=== PATIENT | female | born 1970 | race Caucasian/White ===

== ENCOUNTER 2024-01-20 17:59 | Inpatient (IN) | payer OTHER ==
[~2024-01-20] VITALS: Ht 172.7 cm; Wt 85.7 kg
[2024-01-20] MEDS: IV NS 0.9% 1,000 ML BAG IV ONE (19:00)
[2024-01-20] MEDS: KETOROLAC TROMETHAMINE 15 MG/ML VIAL IV ONE (19:00)
[2024-01-20 19:04] LABS: BASOPHILS % (AUTO) 0.3 % (0.0-2.0); EOSINOPHILS % (AUTO) 0.7 % (0.0-6.0); HEMATOCRIT 38 % (33-45); HEMOGLOBIN 12.6 g/dL (11.5-14.8); LYMPHOCYTES # (AUTO) 1.8 K/uL (0.8-4.8); LYMPHOCYTES % (AUTO) 25.5 % (20.0-44.0); MEAN CORPUSCULAR HEMOGLOBIN 28 PG (26.0-33.0); MEAN CORPUSCULAR HGB CONC 34 g/dl (31.0-36.0); MEAN CORPUSCULAR VOLUME 84 fL (82-100); MONOCYTES # (AUTO) 0.4 K/uL (0.1-1.30); MONOCYTES % (AUTO) 6.1 % (2.0-12.0); NEUTROPHILS # (AUTO) 4.7 K/uL (1.8-8.9); NEUTROPHILS % (AUTO) 67.4 % (43.0-81.0); PLATELET COUNT (AUTO) 247 K/uL (150-450); RED BLOOD CELL COUNT(AUTO) 4.45 MIL/uL (4.0-5.2); RED CELL DISTRIBUTION WIDTH 13.8 % (11.5-15.0); WHITE BLOOD COUNT (AUTO) 6.9 K/uL (4.3-11.0)
[2024-01-20 19:05] LABS: APPEARANCE,URINE Clear (CLEAR); BILIRUBIN,URINE Negative (NEGATIVE); BLOOD, URINE Large Ery/uL (NEGATIVE); COLOR,URINE YELLOW (YELLOW); KETONES,URINE Trace mg/dL (NEGATIVE); LEUKOCYTE ESTERASE ,URINE Negative (NEGATIVE); NITRITE, URINE Negative (NEGATIVE); PH,URINE 5.5 (5.0-8.0); PROTEIN,URINE Negative (NEGATIVE); UGLUCOSE Negative (NEGATIVE); UROBILINOGEN,URINE 0.2 EU/dL (0.2)
[2024-01-20] MEDS ORDERED: KETOROLAC TROMETHAMINE 15 MG/ML VIAL ONE (19:10)
[2024-01-20 19:12] LABS: CALCIUM, SERUM 10.7 mg/dL (8.5-10.1); CREATININE 0.5 mg/dL (0.6-1.3); POTASSIUM 3.8 mmol/L (3.5-5.1)
[2024-01-20 19:26] LABS: ALBUMIN 4.1 g/dL (3.4-5.0); BILIRUBIN,TOTAL 0.3 mg/dL (0.2-1.0); TOTAL PROTEIN, SERUM 7.7 g/dL (6.4-8.2)
[2024-01-20 19:27] LABS: RBC,URINE 21-50 /HPF (0-2)
[2024-01-20 19:28] LABS: BILIRUBIN,DIRECT 0.1 mg/dL (0.0-0.2)
[2024-01-20 19:30] LABS: ADD URINE CULTURE NO; BACTERIA,URINE None seen /HPF (None Seen); WBC,URINE 0-2 /HPF (0-3)
[2024-01-20 19:31] LABS: CALCIUM OXALATE CRYSTALS,UR Few /HPF (None Seen)
[2024-01-20] MEDS ORDERED: TAMSULOSIN 0.4 MG CAP.SR.24H ONE (20:26)
[2024-01-20] MEDS ORDERED: KETOROLAC TROMETHAMINE INJ 30 MG/ML VIAL ONE (20:26)
[2024-01-20] MEDS: TAMSULOSIN 0.4 MG CAP.SR.24H PO ONE (20:27)
[2024-01-20] MEDS: KETOROLAC TROMETHAMINE INJ 30 MG/ML VIAL IV ONE (20:27)
[2024-01-20 21:55] VITALS: BP 155/95; TEMP 98.2; O2SAT 97
[2024-01-20] MEDS ORDERED: ZOLPIDEM TARTRATE 5 MG TABLET PO PRN (23:00)
[2024-01-20] MEDS ORDERED: MAG HYDROX/AL HYDROX/SIMETH 30 ML UDC PO PRN (23:00)
[2024-01-20] MEDS ORDERED: MAGNESIUM HYDROXIDE 30 ML UDC PO PRN (23:00)
[2024-01-20] MEDS ORDERED: Z GUARD REMEDY 4 OZ OINT TP PRN (23:00)
[2024-01-20] MEDS ORDERED: ONDANSETRON HCL/PF 4 MG/2 ML VIAL IVP PRN (23:00)
[2024-01-20] MEDS: ENOXAPARIN SODIUM 40 MG/0.4 ML DISP.SYRIN SQ SCH (23:59)
[2024-01-21] MEDS: IV 1/2NS 1000 ML 1,000 ML IV PRN (00:05)
[2024-01-21] MEDS: MORPHINE SULFATE INJ 2 MG/ML DISP.SYRIN IV PRN (03:00)
[2024-01-21] MEDS: ACETAMINOPHEN 325 MG TABLET PO PRN (05:15)
[2024-01-21 06:51] LABS: BASOPHILS % (AUTO) 0.5 % (0.0-2.0); EOSINOPHILS % (AUTO) 0.8 % (0.0-6.0); HEMATOCRIT 36 % (33-45); HEMOGLOBIN 12.2 g/dL (11.5-14.8); LYMPHOCYTES # (AUTO) 2.1 K/uL (0.8-4.8); LYMPHOCYTES % (AUTO) 36.1 % (20.0-44.0); MEAN CORPUSCULAR HEMOGLOBIN 29 PG (26.0-33.0); MEAN CORPUSCULAR HGB CONC 34 g/dl (31.0-36.0); MEAN CORPUSCULAR VOLUME 86 fL (82-100); MONOCYTES # (AUTO) 0.4 K/uL (0.1-1.30); MONOCYTES % (AUTO) 6.3 % (2.0-12.0); NEUTROPHILS # (AUTO) 3.2 K/uL (1.8-8.9); NEUTROPHILS % (AUTO) 56.3 % (43.0-81.0); PLATELET COUNT (AUTO) 205 K/uL (150-450); RED BLOOD CELL COUNT(AUTO) 4.23 MIL/uL (4.0-5.2); RED CELL DISTRIBUTION WIDTH 13.9 % (11.5-15.0); WHITE BLOOD COUNT (AUTO) 5.7 K/uL (4.3-11.0)
[2024-01-21] MEDS ORDERED: LOSA1TAB36 PO (07:03)
[2024-01-21] MEDS ORDERED: MAGN400T30 PO (07:03)
[2024-01-21] MEDS ORDERED: AMLO-212 PO (07:03)
[2024-01-21] MEDS ORDERED: METO-357 PO (07:03)
[2024-01-21] MEDS ORDERED: CHOL400T11 PO (07:05)
[2024-01-21 07:27] LABS: ALBUMIN 3.4 g/dL (3.4-5.0); BILIRUBIN,DIRECT 0.1 mg/dL (0.0-0.2); BILIRUBIN,TOTAL 0.4 mg/dL (0.2-1.0); CALCIUM, SERUM 10.8 mg/dL (8.5-10.1); CREATININE 0.5 mg/dL (0.6-1.3); MAGNESIUM 2.1 mg/dL (1.8-2.4); PHOSPHORUS 3.8 mg/dL (2.5-4.9); POTASSIUM 3.5 mmol/L (3.5-5.1); TOTAL PROTEIN, SERUM 7.1 g/dL (6.4-8.2)
[2024-01-21 07:45] LABS: URIC ACID 2.5 mg/dL (2.6-7.2)
[2024-01-21 08:00] VITALS: BP 113/80; TEMP 97.8; O2SAT 94
[2024-01-21] MEDS: PANTOPRAZOLE 40 MG VIAL IV SCH (08:05)
[2024-01-21] MEDS ORDERED: LOSA50TA39 PO (08:19)
[2024-01-21] MEDS ORDERED: METO50TA16 PO (08:19)
[2024-01-21] MEDS: HYDROCODONE/APAP 5/325MG TABLET PO PRN (08:26)
[2024-01-21] MEDS: KETOROLAC TROMETHAMINE 15 MG/ML VIAL IV PRN (15:42)
[2024-01-21 16:00] VITALS: BP 125/86; TEMP 97.7; O2SAT 97
[2024-01-21] MEDS: METOPROLOL TARTRATE 50 MG TABLET PO SCH (16:47)
[2024-01-21 20:00] VITALS: BP 133/84; TEMP 98.1; O2SAT 95
[2024-01-21 20:57] VITALS: BP 133/84; TEMP 98.1; O2SAT 93
[2024-01-21] MEDS: TAMSULOSIN 0.4 MG CAP.SR.24H PO SCH (21:28)
[2024-01-22 06:53] LABS: BASOPHILS % (AUTO) 0.4 % (0.0-2.0); EOSINOPHILS % (AUTO) 0.8 % (0.0-6.0); HEMATOCRIT 35 % (33-45); HEMOGLOBIN 12.3 g/dL (11.5-14.8); LYMPHOCYTES # (AUTO) 2.2 K/uL (0.8-4.8); LYMPHOCYTES % (AUTO) 37.1 % (20.0-44.0); MEAN CORPUSCULAR HEMOGLOBIN 30 PG (26.0-33.0); MEAN CORPUSCULAR HGB CONC 35 g/dl (31.0-36.0); MEAN CORPUSCULAR VOLUME 86 fL (82-100); MONOCYTES # (AUTO) 0.4 K/uL (0.1-1.30); MONOCYTES % (AUTO) 6.3 % (2.0-12.0); NEUTROPHILS # (AUTO) 3.2 K/uL (1.8-8.9); NEUTROPHILS % (AUTO) 55.4 % (43.0-81.0); PLATELET COUNT (AUTO) 218 K/uL (150-450); WHITE BLOOD COUNT (AUTO) 5.8 K/uL (4.3-11.0)
[2024-01-22 07:00] LABS: ALBUMIN 3.4 g/dL (3.4-5.0); BILIRUBIN,TOTAL 0.4 mg/dL (0.2-1.0); CALCIUM, SERUM 10.7 mg/dL (8.5-10.1); CREATININE 0.5 mg/dL (0.6-1.3); MAGNESIUM 2.1 mg/dL (1.8-2.4); PHOSPHORUS 3.9 mg/dL (2.5-4.9); POTASSIUM 3.8 mmol/L (3.5-5.1)
[2024-01-22 08:00] VITALS: BP 147/103; TEMP 97.9; O2SAT 97
[2024-01-22] MEDS: AMLODIPINE BESYLATE 5 MG TABLET PO SCH (09:00)
[2024-01-22] MEDS: LOSARTAN POTASSIUM 50 MG TABLET PO SCH (09:07)
[2024-01-22] MEDS: MAGNESIUM OXIDE 400 MG TABLET PO SCH (09:07)
[2024-01-22 16:24] VITALS: BP 129/89; TEMP 98.2; O2SAT 96
[2024-01-22] MEDS: KETOROLAC TROMETHAMINE INJ 30 MG/ML VIAL IV PRN (16:39)
[2024-01-22 20:00] VITALS: BP 132/90; TEMP 98.6; O2SAT 96
[2024-01-23] MEDS ORDERED: FENTANYL PF 100MCG/2ML AMPUL ONE (06:54)
[2024-01-23] MEDS ORDERED: MIDAZOLAM HCL 2 MG/2ML VIAL ONE (06:55)
[2024-01-23] MEDS ORDERED: FAMOTIDINE/PF INJ 20 MG/2 ML VIAL IV ONE (06:55)
[2024-01-23 08:02] LABS: ALBUMIN 3.6 g/dL (3.4-5.0); BILIRUBIN,TOTAL 0.3 mg/dL (0.2-1.0); CALCIUM, SERUM 11.3 mg/dL (8.5-10.1); CREATININE 0.5 mg/dL (0.6-1.3); POTASSIUM 3.8 mmol/L (3.5-5.1); TOTAL PROTEIN, SERUM 7.6 g/dL (6.4-8.2)
[2024-01-23 08:20] VITALS: BP 140/96; O2SAT 92
[2024-01-23 09:43] VITALS: BP 122/67; TEMP 100; O2SAT 96
[2024-01-23 10:02] VITALS: BP 140/96
[2024-01-23] MEDS ORDERED: PANT40TA2 PO (16:48)
[2024-01-23] MEDS ORDERED: IBUP-2314 PO (16:48)
== END 2024-01-23 15:00 | disposition home or self-care (01) | DRG 446 ==
LOC: ER 18:02 → MED 21:08
PROVIDERS: ADMIT Nurse Practitioner Family; ATTEND Nurse Practitioner Acute Care
PROC: 0T778DZ Dilation of Left Ureter with Intraluminal Device, Via Natural or Artificial Opening Endoscopic (ICD-10-PCS; principal; 2024-01-23)
PROC: 0TC78ZZ Extirpation of Matter from Left Ureter, Via Natural or Artificial Opening Endoscopic (ICD-10-PCS; 2024-01-23)
PROC: BT17YZZ Fluoroscopy of Left Ureter using Other Contrast (ICD-10-PCS; 2024-01-23)
DX: N13.2 Hydronephrosis with renal and ureteral calculous obstruction (principal); E66.3 Overweight; I10 Essential (primary) hypertension; Z90.49 Acquired absence of other specified parts of digestive tract; E78.5 Hyperlipidemia, unspecified; E83.52 Hypercalcemia; Z98.890 Other specified postprocedural states; E66.9 Obesity, unspecified; Z68.28 Body mass index [BMI] 28.0-28.9, adult; Z87.442 Personal history of urinary calculi
CPT/HCPCS: 36415; 74018; 80048-TC; 80053-TC; 80061-TC; 80076-TC; 81001; 83615-TC; 83690-TC; 83735-TC; 83970; 84100-TC; 84550-TC; 85025-TC; 87086-TC; C9113; G0378; J0690; J1100; J1650; J1885; J2250; J2270; J2405; J2704; J2765; J3010; J3490; J7030; J7050